=== PATIENT | female | born 1980 ===

== ENCOUNTER 2018-06-23 13:58 | Emergency (ER) | payer OTHER ==
--- NOTE | 2018-06-23 14:34 | Emergency Department Report ---
Chief Complaint: Vaginal Bleeding Stated Complaint: DOCTOR REFERRAL Time Seen by Provider: 06/23/18 14:33 - HPI History of Present Illness: SENT BY ANEMIA HGB 7 VAG BLEED - Exam Vital Signs: Vital Signs 06/23/18 14:25 Temperature 99 F Pulse Rate 95 H Respiratory 20 Rate Blood Pressure 123/73 [Right] O2 Sat by Pulse 100 Oximetry MSE screening note: Focused history and physical exam performed. Due to findings the following was ordered: ED Disposition for MSE Condition: Stable
[2018-06-23 15:22] LABS: Basophils % (Auto) 0.4 % (0.0-1.8); Eosinophils # (Auto) 0.2 K/mm3 (0.0-0.4); Eosinophils % (Auto) 1.7 % (0.0-4.3); Hematocrit 26.2 % (30.3-42.9); Hemoglobin 8.3 gm/dl (10.1-14.3); Lymphocytes % (Auto) 28.8 % (13.4-35.0); Mean Corpuscular HGB Conc 32 % (30-34); Mean Corpuscular Volume 75 fl (79-97); Monocytes # (Auto) 0.6 K/mm3 (0.0-0.8); Platelet Count 555 K/mm3 (140-440); Red Blood Count 3.49 M/mm3 (3.65-5.03); Red Cell Distribution Width 19.4 % (13.2-15.2)
[2018-06-23 15:37] LABS: Bacteria,Urine 2+ /HPF (Negative); Bilirubin,Urine NEG (Negative); Blood,Urine LG (Negative); Color,Urine Red (Yellow); RBC,Urine > 182.0 /HPF (0.0-6.0); Urobilinogen,Urine < 2.0 mg/dL (<2.0)
[2018-06-23 15:38] LABS: HCG Qualitative,Urine Negative (Negative)
[2018-06-23 15:39] LABS: BUN/Creatinine Ratio 20; Blood Urea Nitrogen 12 mg/dL (7-17); Calcium 8.5 mg/dL (8.4-10.2); Hemolysis Index 33
--- NOTE | 2018-06-23 18:43 | Ultrasound Report ---
PROCEDURE: US PELVIC COMPLETE, US TRANSVAGINAL TECHNIQUE: Transvesical and endovaginal pelvic sonographic imaging was performed HISTORY: DUB LMP 05/16/2018 COMPARISONS: None FINDINGS: Normally anteverted uterus measures 7.9 x 5.4 x 6.5 cm. Myometrium is inhomogeneous. Endometrial stripe measures 17 mm and is diffusely echogenic. Within the endometrium there is a focus that is hypoechoic with increased vascularity which may represent a polyp. In the anterior uterine subserosal body there is a 2.2 x 1.8 x 2.6 cm fibroid. Other smaller fibroids are identified. Small cervical nabothian cysts. Right ovary measures 3.6 x 3 x 3.1 cm and contains 3.1 cm septated cyst. Normal color flow. Left ovary measures 2.8 x 1.7 x 2.6 cm and is sonographically unremarkable. No free pelvic fluid is identified. IMPRESSION: 17 mm endometrial stripe correlates with late secretory phase of cycle. Small uterine fibroids, largest in the mid body subserosal location. None appear to abut the endometr ial stripe. Multiple small cervical nabothian cysts. Septated right ovarian cyst. Consider off cycle follow-up imaging in 10 weeks.. This document is electronically signed by Eri Mei MD., June 23 2018 06:41:40 PM ET
[2018-06-23] MEDS: NACL 0.9% 500 ML 500 ML IV ONE ×2 (19:30→20:22)
--- NOTE | 2018-06-23 19:31 | Emergency Department Report ---
ED Female HPI - General Chief complaint: Vaginal Bleeding Stated complaint: DOCTOR REFERRAL Time Seen by Provider: 06/23/18 14:33 Source: patient Mode of arrival: Ambulatory Limitations: No Limitations - History of Present Illness Initial comments: 37 year old female with no significant past medical history presents to the hospital for vaginal bleeding and anemia. Patient has been having vaginal bleeding for 32 days and uses approximate 5 to 6 pads per day. Today she has used 3 pads. She denies any pain. Complains of mild lightheadedness with exertion. She was seen at a clinic yesterday Was drawn. She is to call back today to her hemoglobin was 7.90 she should come to the hospital. He was started on Provera 10 mg yesterday 10 days. She was seen at a primary care clinic (DR BOBO). She was told that would need an ultrasound. She denies a history of fibroids. - Related Data Previous Rx's Medication Instructions Recorded Last Taken Type Ferrous Sulfate [Feosol 325 MG tab] 325 mg PO QDAY #30 tablet 06/23/18 Unknown Rx Allergies Allergy/AdvReac Type Severity Reaction Status Date / Time No Known Allergies Allergy Unverified 06/23/18 14:07 ED Review of Systems ROS: Stated complaint: DOCTOR REFERRAL Other details as noted in HPI Comment: All other systems reviewed and negative ED Past Medical Hx - Past Medical History Previous Medical History?: No - Surgical History Past Surgical History?: No - Social History Smoking Status: Never Smoker Substance Use Type: None - Medications Home Medications: Home Medications Medication Instructions Recorded Confirmed Last Taken Type Ferrous Sulfate [Feosol 325 MG tab] 325 mg PO QDAY #30 tablet 06/23/18 Unknown Rx ED Physical Exam - General Limitations: No Limitations - Other Other exam information: General: No limitations, patient is alert in no acute distress Head exam: Atraumatic, normocephalic Eyes exam: Normal appearance ENT: Moist mucous membrane, normal oropharynx Neck exam: Normal inspection, full range of motion, no meningismus nontender Respiratory exam: Clear to auscultation bilateral, no wheezes, rales, crackles Cardiovascular: Normal rate and rhythm, normal heart sounds Abdomen: Soft, nondistended, and nontender, with normal bowel sounds, no rebound, or guarding Extremity: Full range of motion normal inspection no deformity Back: Normal Inspection, full range of motion, no tenderness Neurologic: Alert, oriented x3, cranial nerves intact, no motor or sensory deficit Psychiatric: normal affect, normal mood Skin: Warm, dry, intact ED Course Vital Signs 06/23/18 06/23/18 06/23/18 14:25 17:08 17:15 Temperature 99 F Pulse Rate 95 H 125 H Respiratory 20 19 Rate Blood Pressure 120/57 Blood Pressure 123/73 [Right] O2 Sat by Pulse 100 100 100 Oximetry 06/23/18 06/23/18 06/23/18 17:20 19:56 19:59 Temperature 99.3 F Pulse Rate 95 H Respiratory 19 15 21 Rate Blood Pressure 120/57 122/71 Blood Pressure [Right] O2 Sat by Pulse 100 100 Oximetry 06/23/18 06/23/18 06/23/18 20:00 20:02 20:10 Temperature 99.2 F Pulse Rate 98 H Respiratory 16 20 18 Rate Blood Pressure 132/83 132/84 120/57 Blood Pressure [Right] O2 Sat by Pulse 100 99 100 Oximetry 06/23/18 06/23/18 20:16 20:17 Temperature 99.2 F Pulse Rate 100 H 96 H Respiratory 14 21 Rate Blood Pressure 130/77 130/77 Blood Pressure [Right] O2 Sat by Pulse 100 100 Oximetry ED Medical Decision Making - Lab Data Result diagrams: 06/23/18 15:09 06/23/18 15:09 Lab Results 06/23/18 06/23/18 06/23/18 Range/Units 15:09 15:09 15:09 WBC 10.3 (4.5-11.0) K/mm3 RBC 3.49 L (3.65-5.03) M/mm3 Hgb 8.3 L (10.1-14.3) gm/dl Hct 26.2 L (30.3-42.9) % MCV 75 L (79-97) fl MCH 24 L (28-32) pg MCHC 32 (30-34) % RDW 19.4 H (13.2-15.2) % Plt Count 555 H (140-440) K/mm3 Lymph % (Auto) 28.8 (13.4-35.0) % [place] % (Auto) 6.0 (0.0-7.3) % Eos % (Auto) 1.7 (0.0-4.3) % Baso % (Auto) 0.4 (0.0-1.8) % Lymph # 3.0 (1.2-5.4) K/mm3 [place] # 0.6 (0.0-0.8) K/mm3 Eos # 0.2 (0.0-0.4) K/mm3 Baso # 0.0 (0.0-0.1) K/mm3 Seg Neutrophils % 63.1 (40.0-70.0) % Seg Neutrophils # 6.5 (1.8-7.7) K/mm3 Sodium 140 (137-145) mmol/L Potassium 4.2 (3.6-5.0) mmol/L Chloride 105.6 (98-107) mmol/L Carbon Dioxide 22 (22-30) mmol/L Anion Gap 17 mmol/L BUN 12 (7-17) mg/dL Creatinine 0.6 L (0.7-1.2) mg/dL Estimated GFR > 60 ml/min BUN/Creatinine Ratio 20 % Glucose 101 H (65-100) mg/dL Calcium 8.5 (8.4-10.2) mg/dL Urine Color (Yellow) Urine Turbidity (Clear) Urine pH (5.0-7.0) Ur Specific [place] (1.003-1.030) Urine Protein (Negative) mg/dL Urine Glucose (UA) (Negative) mg/dL Urine Ketones (Negative) mg/dL Urine Blood (Negative) Urine Nitrite (Negative) Urine Bilirubin (Negative) Urine Urobilinogen (<2.0) mg/dL Ur Leukocyte Esterase (Negative) Urine WBC (Auto) (0.0-6.0) /HPF Urine RBC (Auto) (0.0-6.0) /HPF U Epithel Cells (Auto) (0-13.0) /HPF Urine Bacteria (Auto) (Negative) /HPF Urine WBC Clumps /HPF Urine Yeast (Budding) /HPF Urine HCG, Qual (Negative) Blood Type B POSITIVE Antibody Screen Negative Crossmatch See Detail 06/23/18 Range/Units 15:14 WBC (4.5-11.0) K/mm3 RBC (3.65-5.03) M/mm3 Hgb (10.1-14.3) gm/dl Hct (30.3-42.9) % MCV (79-97) fl MCH (28-32) pg MCHC (30-34) % RDW (13.2-15.2) % Plt Count (140-440) K/mm3 Lymph % (Auto) (13.4-35.0) % [place] % (Auto) (0.0-7.3) % Eos % (Auto) (0.0-4.3) % Baso % (Auto) (0.0-1.8) % Lymph # (1.2-5.4) K/mm3 [place] # (0.0-0.8) K/mm3 Eos # (0.0-0.4) K/mm3 Baso # (0.0-0.1) K/mm3 Seg Neutrophils % (40.0-70.0) % Seg Neutrophils # (1.8-7.7) K/mm3 Sodium (137-145) mmol/L Potassium (3.6-5.0) mmol/L Chloride (98-107) mmol/L Carbon Dioxide (22-30) mmol/L Anion Gap mmol/L BUN (7-17) mg/dL Creatinine (0.7-1.2) mg/dL Estimated GFR ml/min BUN/Creatinine Ratio % Glucose (65-100) mg/dL Calcium (8.4-10.2) mg/dL Urine Color Red (Yellow) Urine Turbidity Cloudy (Clear) Urine pH 6.0 (5.0-7.0) Ur Specific [place] 1.031 H (1.003-1.030) Urine Protein 100 mg/dl (Negative) mg/dL Urine Glucose (UA) Neg (Negative) mg/dL Urine Ketones Neg (Negative) mg/dL Urine Blood Lg (Negative) Urine Nitrite Neg (Negative) Urine Bilirubin Neg (Negative) Urine Urobilinogen < 2.0 (<2.0) mg/dL Ur Leukocyte Esterase Tr (Negative) Urine WBC (Auto) 81.0 H (0.0-6.0) /HPF Urine RBC (Auto) > 182.0 (0.0-6.0) /HPF U Epithel Cells (Auto) 4.0 (0-13.0) /HPF Urine Bacteria (Auto) 2+ (Negative) /HPF Urine WBC Clumps 2+ /HPF Urine Yeast (Budding) 2+ /HPF Urine HCG, Qual Negative (Negative) Blood Type Antibody Screen Crossmatch - Radiology Data Radiology results: report reviewed PROCEDURE: US PELVIC COMPLETE, US TRANSVAGINAL TECHNIQUE: Transvesical and endovaginal pelvic sonographic imaging was performed HISTORY: DUB LMP 05/16/2018 COMPARISONS: None FINDINGS: Normally anteverted uterus measures 7.9 x 5.4 x 6.5 cm. Myometrium is inhomogeneous. Endometrial stripe measures 17 mm and is diffusely echogenic. Within the endometrium there is a focus that is hypoechoic with increased vascularity which may represent a polyp. In the anterior uterine subserosal body there is a 2.2 x 1.8 x 2.6 cm fibroid. Other smaller fibroids are identified. Small cervical nabothian cysts. Right ovary measures 3.6 x 3 x 3.1 cm and contains 3.1 cm septated cyst. Normal color flow. Left ovary measures 2.8 x 1.7 x 2.6 cm and is sonographically unremarkable. No free pelvic fluid is identified. IMPRESSION: 17 mm endometrial stripe correlates with late secretory phase of cycle. Small uterine fibroids, largest in the mid body subserosal location. None appear to abut the endometrial stripe. Multiple small cervical nabothian cysts. Septated right ovarian cyst. Consider off cycle follow-up imaging in 10 weeks.. - Medical Decision Making Ultrasound shows fibroids likely cause of bleeding Given patient's mild symptoms and borderline anemia with continued bleeding she received 1 unit of PRBCs She will be discharged to continue Provera, iron tablets, and follow up with PEDIATRIC PATHOLOGIST for further management - Differential Diagnosis , miscarriage, anemia, fibroids, uterine cancer Critical Care Time: No Critical care attestation.: If time is entered above; I have spent that time in minutes in the direct care of this critically ill patient, excluding procedure time. ED Disposition Clinical Impression: Menorrhagia, Uterine fibroid, Symptomatic anemia Disposition: DC-01 TO HOME OR SELFCARE Is pt being admited?: No Does the pt Need Aspirin: No Condition: Stable Instructions: Uterine Fibroids (ED), Menorrhagia (ED), Anemia (ED) Additional Instructions: Take the medication as prescribed. Follow up with your doctor or the clinic/doctor provided. Return if symptoms worsen as indicated by your discharge instructions. Continue the Provera as prescribed. It is very important that you follow-up with a PEDIATRIC PATHOLOGIST doctor for further management. O'Neill la medicacin segn lo prescrito. Yesika un seguimiento con garcia mdico o la clnica / mdico proporcionado. Regrese si los sntomas empeoran lorena lo indican blanquita instrucciones de vega. Continuar el Provera segn lo prescrito. Es muy importante que yesika un seguimiento con un mdico gineclogo para grant mayor administracin. Prescriptions: Ferrous Sulfate [Feosol 325 MG tab] 325 mg PO QDAY #30 tablet Referrals: JONES RINCONHARRISON MD MELINA [Primary Care Provider] - 3-5 Days (legal billing clerk doctor ) ALEXEI MILLER MD [Staff Physician] - 3-5 Days (legal billing clerk ) Time of Disposition: 20:24 (d/c after transfusion complete s/o to Dr Oviedo) Print Language: SALVADORE[place]
[2018-06-23] MEDS ORDERED: MACROBID PO ONE (20:17)
[2018-06-24 00:09] VITALS: BP 109/57
== END 2018-06-24 00:25 | disposition home or self-care (01) ==
LOC: ED 13:58
DX: N92.0 Excessive and frequent menstruation with regular cycle (principal); D25.9 Leiomyoma of uterus, unspecified; D64.9 Anemia, unspecified
CPT/HCPCS: 36415; 36430; 76830; 76856; 80048; 81001; 81025; 85025; 86850; 86900; 86901; 86920; 99284; P9016